=== PATIENT | male | born 1955 | race Caucasian/White ===

== ENCOUNTER → 2022-01-19 13:16 | Outpatient (BNVA) | payer MEDICARE, SELFPAY | PROVIDERS: PCP Internal Medicine; Visit Provider Psychiatry & Neurology Neurology | DX: G20 Parkinson's disease (principal); F32.A Depression, unspecified; Z79.899 Other long term (current) drug therapy | CPT/HCPCS: 99212 ==

== ENCOUNTER → 2022-05-18 12:51 | Outpatient (BNVA) | payer MEDICARE, SELFPAY | PROVIDERS: PCP Internal Medicine; Visit Provider Psychiatry & Neurology Neurology | DX: G20 Parkinson's disease (principal); F32.A Depression, unspecified | CPT/HCPCS: 99212 ==

== ENCOUNTER → 2022-09-14 12:55 | Outpatient (BNVA) | payer MEDICARE, SELFPAY | PROVIDERS: PCP Internal Medicine; Visit Provider Psychiatry & Neurology Neurology | DX: G20 Parkinson's disease (principal); F32.A Depression, unspecified | CPT/HCPCS: 99212 ==

== ENCOUNTER → 2023-04-07 13:49 | Outpatient (BNVA) | payer MEDICARE, SELFPAY | PROVIDERS: PCP Internal Medicine; Visit Provider Psychiatry & Neurology Neurology | DX: G20 Parkinson's disease (principal); F32.A Depression, unspecified | CPT/HCPCS: 99212 ==

== ENCOUNTER 2023-09-08 15:26 | Outpatient (AMB) | payer MEDICARE, SELFPAY ==
--- NOTE | 2023-09-08 15:27 | A.OFFVIS_ITS ---
Intake Vital Signs 09/08/23 15:30 Height 5 ft 6 in Weight 200 lb BMI 32.3 BP 122/68 Blood Pressure Location Rt brachial Position Sitting Respiration 16 Pulse 79 Pulse Source Pulse Oximeter Pulse Oximetry (%) 96 Oxygen Delivery Method Room Air Intake Visit Reasons: 3 mo f/u LVM to r/s MD off, Lvm Intake Note: Pt presents tot he office for a 3 month follow up for Parkinson's. Pt reports here with Bee. She reports they had a minor set back and had to adjust his night time meds, he's been a little better since . 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 He shuffles in the morning .He has 2 OFF periods usually end of the dose . He is anxious during these episodes. He is slower in the mornings He denies hallucinations he complains of some word-finding difficulties. Says he also notices that if he takes the morning dose with food it is not effective so he tripped takes it with a small snack. He also has dyskinesias more towards the later half of the day. He denies falls. He is active and exercises regularly. His mood is stable. Mom denies lightheadedness. Denies any swallowing or speech difficulty. He has mild constipation. [facility] Medical History (Updated 09/08/23 @ 15:45 by Alecia Keith MD) Constipation Depression Depression Obstructive sleep apnea Surgical History No pertinent past surgical history Family History Father No problems noted. Mother No problems noted. Social History Household Members: Spouse Alcohol intake: current Alcohol intake frequency: does not drink Patient Tobacco Use Status: Never used Tobacco Current occupational status: retired Physical Exam Vital Signs: Last Vital Signs Pulse 79 09/08/23 15:30 Resp 16 09/08/23 15:30 BP 122/68 09/08/23 15:30 Pulse Ox 96 09/08/23 15:30 Oxygen Delivery Method Room Air 09/08/23 15:30 BMI result Body Mass Index 32.3 Const General: cooperative, healthy appearing, comfortable and no acute distress Nutritional Appearance: average body habitus Orientation/consciousness: patient oriented x3 Neuro Other: Mild decreased facial expression and blink. Mild hypophonia. Moderate dyskinesias in legs No tongue tremors. No wrist tremors. Fine finger movements mildly decreased on the right upper extremity. Tone normal. Gait good posture mild decreased stride mild off balance and mild dyskinesias in bilateral upper extremities General: patient oriented x3 Cranial nerves: Yes CN's II-XII intact bilaterally Cognition (Neuro): normal cognition Assessment & Plan Assessment & Plan (1) Parkinson's disease: Code(s): G20 - Parkinson's disease (2) Depression: Code(s): F32.A - Depression, unspecified (3) Constipation: Code(s): K59.00 - Constipation, unspecified Plan Sinemet CR 25/100 tablet q.h.s.. Continue Sinemet 25/100 - 3 tabs 7am 2 tabs 10am 1pm 1 tab at 4pm, 7pm, 10pm start Miralax qd entacapone 200mg qid selegelline 5mg qd Lorazepam 0.5mg 1-2 tab qd Medications: Changed From carbidopa-levodopa 25-100 mg 2 tabs PO .6 times a day 360 tabs 6RF To carbidopa-levodopa 25-100 mg 2 tabs at 7am,10am,1pm 4pm 7pm , 1 tab 10pm 360 tabs 6RF Coding Level of Care Code Est Pt Level 4 (79242) Diagnoses Parkinson's disease G20 Depression F32.A Constipation K59.00
[2023-09-08 15:30] VITALS: BP 122/68; PULSE 79; RESP 16; O2SAT 96; BMI 32.3
== END 2023-09-08 15:52 | disposition home or self-care (01) ==
PROVIDERS: PCP Internal Medicine; Visit Provider Psychiatry & Neurology Neurology
DX: G20.B2 Parkinson's disease with dyskinesia, with fluctuations (principal); F32.A Depression, unspecified; K59.00 Constipation, unspecified
CPT/HCPCS: 99214

== ENCOUNTER → 2023-09-08 15:26 | Outpatient (BNVA) | payer MEDICARE, SELFPAY | PROVIDERS: PCP Internal Medicine; Visit Provider Psychiatry & Neurology Neurology | DX: G20.A1 Parkinson's disease without dyskinesia, without mention of fluctuations (principal); F32.A Depression, unspecified; K59.00 Constipation, unspecified | CPT/HCPCS: 99212 ==

== ENCOUNTER 2024-01-16 13:49 | Outpatient (AMB) | payer MEDICARE, SELFPAY ==
--- NOTE | 2024-01-16 13:50 | A.OFFVIS_ITS ---
Intake Vital Signs 01/16/24 13:51 Height 5 ft 6 in Weight 208 lb 4 oz BMI 33.6 BP 122/70 Blood Pressure Location Rt brachial Position Sitting Respiration 16 Pulse 81 Pulse Source Pulse Oximeter Pulse Oximetry (%) 95 Oxygen Delivery Method Room Air Intake Visit Reasons: 4 mo f/u - Dyskinesias Intake Note: Pt presents for a 4 month follow up for Parkinson's. Drugless Doctor Required: No Allergies No Known Allergies Allergy (Verified 01/16/24 13:51) HPI HPI Comments History of Present Illness Details 68-year-old male with Parkinson's candy canchola comes for a follow-up.He has dyskinesias towards the later part of the day. He shuffles in the morning .He has 2 OFF periods usually end of the dose . He is anxious during these episodes. He is slower in the mornings He denies hallucinations he complains of some word-finding difficulties. Says he also notices that if he takes the morning dose with food it is not effective so he tripped takes it with a small snack. He also has dyskinesias more towards the later half of the day. He denies falls. He is active and exercises regularly. His mood is stable. Mom denies lightheadedness. Denies any swallowing or speech difficulty. He has mild constipation. 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 Mother No problems noted. Social History Household Members: Spouse Alcohol intake: current Alcohol intake frequency: does not drink Patient Tobacco Use Status: Never used Tobacco Current occupational status: retired Physical Exam Vital Signs: Last Vital Signs Pulse 81 01/16/24 13:51 Resp 16 01/16/24 13:51 BP 122/70 01/16/24 13:51 Pulse Ox 95 01/16/24 13:51 Oxygen Delivery Method Room Air 01/16/24 13:51 BMI result Body Mass Index 33.6 Const General: cooperative, healthy appearing, comfortable and no acute distress Nutritional Appearance: average body habitus Orientation/consciousness: patient oriented x3 Neuro Other: Mild decreased facial expression and blink. Mild hypophonia. Moderate dyskinesias in legs No tongue tremors. No wrist tremors. Fine finger movements mildly decreased on the right upper extremity. Tone normal. Gait good posture mild decreased stride mild off balance and mild dyskinesias in bilateral upper extremities General: patient oriented x3 Cranial nerves: Yes CN's II-XII intact bilaterally Cognition (Neuro): normal cognition Assessment & Plan Assessment & Plan (1) Parkinson's disease with dyskinesia without fluctuating manifestations: Code(s): G20.B1 - Parkinson's disease with dyskinesia, without mention of fluctuations (2) Depression: Code(s): F32.A - Depression, unspecified (3) Constipation: Code(s): K59.00 - Constipation, unspecified Plan will trial him on Rytary 36/145 -2 caps qid for less fluctuations and dyskinesias- samples given Lot no [id number] 100caps exp- 08/23 Hold carbidopa /levodopa Ir and ER, comtan Miralax qd selegelline 5mg qd Lorazepam 0.5mg 1-2 tab qd Medications: New carbidopa-levodopa 36.25-145 mg ER (Rytary) divide evenly over waking hours 2 caps PO QID 240 caps 6RF Coding Level of Care Code Est Pt Level 4 (88786) Diagnoses Parkinson's disease with dyskinesia without fluctuating manifestations G20.B1 Depression F32.A Constipation K59.00
[2024-01-16 13:51] VITALS: BP 122/70; PULSE 81; RESP 16; O2SAT 95; BMI 33.6
== END 2024-01-16 14:16 | disposition home or self-care (01) ==
LOC: HO.HSMS 13:49
PROVIDERS: PCP Internal Medicine; Visit Provider Psychiatry & Neurology Neurology
DX: G20.B1 Parkinson's disease with dyskinesia, without mention of fluctuations (principal); F32.A Depression, unspecified; K59.00 Constipation, unspecified
CPT/HCPCS: 99214

== ENCOUNTER → 2024-01-16 13:49 | Outpatient (BNVA) | payer MEDICARE, SELFPAY | PROVIDERS: PCP Internal Medicine; Visit Provider Psychiatry & Neurology Neurology | DX: G20.B1 Parkinson's disease with dyskinesia, without mention of fluctuations (principal); F32.A Depression, unspecified; K59.00 Constipation, unspecified | CPT/HCPCS: 99212 ==

== ENCOUNTER 2024-05-30 13:46 | Outpatient (AMB) | payer MEDICARE, SELFPAY ==
--- NOTE | 2024-05-30 13:55 | A.OFFVIS_ITS ---
Vital Signs 05/30/24 14:02 Height 5 ft 6 in Weight 208 lb BMI 33.6 BP 138/80 Blood Pressure Location Rt brachial Position Sitting Respiration 16 Pulse 78 Pulse Source Pulse Oximeter Pulse Oximetry (%) 97 Oxygen Delivery Method Room Air Intake Visit Reasons: 4 month F/U - Confirmed Intake Note: Pt presents for a 4 month follow up for Parkinson's. 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 He shuffles in the morning .He has 2 OFF periods usually end of the dose . He is anxious during these episodes. He is slower in the mornings. He denies hallucinations he complains of some word-finding difficulties. Says he also notices that if he takes the morning dose with food it is not effective so he tripped takes it with a small snack. He also has dyskinesias more towards the later half of the day. He denies falls. He is active and exercises reg ularly. His mood is stable. Mom denies lightheadedness. Denies any swallowing or speech difficulty. He has mild constipation. [facility] Medical History Parkinson's disease with dyskinesia without fluctuating manifestations Constipation Depression Depression Obstructive sleep apnea Surgical History No pertinent past surgical history Family History Father No problems noted. Mother No problems noted. Social History Household Members: Spouse Alcohol intake: current Alcohol intake frequency: does not drink Patient Tobacco Use Status: Never used Tobacco Current occupational status: retired Physical Exam Vital Signs: Last Vital Signs Pulse 78 05/30/24 14:02 Resp 16 05/30/24 14:02 BP 138/80 05/30/24 14:02 Pulse Ox 97 05/30/24 14:02 Oxygen Delivery Method Room Air 05/30/24 14:02 BMI result Body Mass Index 33.6 Const General: cooperative, healthy appearing, comfortable and no acute distress Nutritional Appearance: average body habitus Orientation/consciousness: patient oriented x3 Neuro Other: Mild decreased facial expression and blink. Mild hypophonia. Moderate dyskinesias in legs No tongue tremors. No wrist tremors. Fine finger movements mildly decreased on the right upper extremity. Tone normal. Gait good posture mild decreased stride mild off balance and mild dyskinesias in bilateral upper extremities General: patient oriented x3 Cranial nerves: Yes CN's II-XII intact bilaterally Cognition (Neuro): normal cognition Assessment & Plan Assessment & Plan (1) Parkinson's disease with dyskinesia without fluctuating manifestations: Code(s): G20.B1 - Parkinson's disease with dyskinesia, without mention of fluctuations Category: Medical (2) Depression: Code(s): F32.A - Depression, unspecified Category: Medical (3) Constipation: Code(s): K59.00 - Constipation, unspecified Category: Medical Plan Change sinemet 25/100 6am,9am,12pm,3pm,6pm,9pm,- 3-2-3-1-1-1 increase sinemet Cr 25/100 2 tabs qhs Miralax qd selegelline 5mg qd Lorazepam 0.5mg 1-2 tab qd Medications: Changed From carbidopa-levodopa 25-100 mg 2 tabs at 7am,10am,1pm 4pm 7pm , 1 tab 10pm 360 tabs 6RF To carbidopa-levodopa 25-100 mg 3 tabs at 6am,12noon 2tabs 9am, 1 tab at 3pm,6,pm,9pm 360 tabs 6RF From carbidopa-levodopa 25-100 mg ER 1 tab PO BEDTIME 30 tabs 6RF To carbidopa-levodopa 25-100 mg ER 2 tabs PO BEDTIME 60 tabs 6RF Discontinued carbidopa-levodopa 36.25-145 mg ER (Rytary) divide evenly over waking hours Discontinued Reason: Patient no longer taking 2 caps PO QID 240 caps 6RF Coding Level of Care Code New Pt Level 4 (67264) Complex EM visit Add On G2211 Diagnoses Parkinson's disease with dyskinesia without fluctuating manifestations G20.B1 Depression F32.A Constipation K59.00
[2024-05-30 14:02] VITALS: BP 138/80; PULSE 78; RESP 16; O2SAT 97; BMI 33.6
== END 2024-05-30 14:29 | disposition home or self-care (01) ==
PROVIDERS: PCP Internal Medicine; Visit Provider Psychiatry & Neurology Neurology
DX: G20.B1 Parkinson's disease with dyskinesia, without mention of fluctuations (principal); F32.A Depression, unspecified; K59.00 Constipation, unspecified
CPT/HCPCS: 99214; G2211

== ENCOUNTER → 2024-05-30 13:46 | Outpatient (BNVA) | payer MEDICARE, SELFPAY | PROVIDERS: PCP Internal Medicine; Visit Provider Psychiatry & Neurology Neurology | DX: G20.B1 Parkinson's disease with dyskinesia, without mention of fluctuations (principal); F32.A Depression, unspecified; K59.00 Constipation, unspecified | CPT/HCPCS: 99212 ==

== ENCOUNTER 2024-12-31 13:47 | Outpatient (AMB) | payer MEDICARE, SELFPAY ==
--- NOTE | 2024-12-31 14:19 | MHC.OFFVIS ---
Vital Signs 12/31/24 14:20 Height 5 ft 6 in Weight 193 lb BMI 31.1 BP 118/70 Blood Pressure Location Rt brachial Position Sitting Pulse 65 Pulse Source Pulse Oximeter Pulse Oximetry (%) 98 Oxygen Delivery Method Room Air Intake Visit Reasons: Follow up Intake Note: Patient following up on parkinson's medication increased(sinemet) Allergies No Known Allergies Allergy (Verified 12/31/24 14:23) HPI Comments Details: 68-year-old male with Parkinson's disease comes for a follow-up.No improvement in OFF periods and dyskinesias with chnage in medictaions He still has more than 4 hr sof OFF periods during the day. After his 7 am dos eit take mendy 4 hrs to start moving. He has dyskinesias towards the later part of the day. He shuffles in the morning .He has 2 OFF periods usually end of the dose . He is anxious during these episodes. He is slower in the mornings. He denies hallucinations he complains of some word-finding difficulties. Says he also notices that if he takes the morning dose with food it is not effective so he tripped takes it with a small snack. He also has dyskinesias more towards the later half of the day. He denies falls. He is active and exercises regularly. His mood is stable. Mom denies lightheadedness. Denies any swallowing or speech difficulty. He has mild constipation. 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 Mother No problems noted. Social History Household Members: Spouse Alcohol intake: current Alcohol intake frequency: does not drink Patient Tobacco Use Status: Never used Tobacco Current occupational status: retired Physical Exam Vital Signs: Last Vital Signs Pulse 65 12/31/24 14:20 BP 118/70 12/31/24 14:20 Pulse Ox 98 12/31/24 14:20 Oxygen Delivery Method Room Air 12/31/24 14:20 BMI result Body Mass Index 31.1 Const General: cooperative, healthy appearing, comfortable and no acute distress Nutritional Appearance: average body habitus Orientation/consciousness: patient oriented x3 Neuro Other: Mild decreased facial expression and blink. Mild hypophonia. Moderate dyskinesias No tongue tremors. No wrist tremors. Fine finger movements mildly decreased on the right upper extremity. Tone normal. Gait good posture mild decreased stride mild off balance and mild dyskinesias in bilateral upper extremities General: patient oriented x3 Cranial nerves: Yes CN's II-XII intact bilaterally Cognition (Neuro): normal cognition Assessment & Plan Assessment & Plan (1) Parkinson's disease with dyskinesia: Comment: .B2 Code(s): G20.B1 - Parkinson's disease with dyskinesia, without mention of fluctuations Category: Medical Qualifiers: Fluctuating manifestations: with fluctuating manifestations Qualified Code(s): G20.B2 - Parkinson's disease with dyskinesia, with fluctuations (2) Depression: Code(s): F32.A - Depression, unspecified Category: Medical (3) Constipation: Code(s): K59.00 - Constipation, unspecified Category: Medical Plan Change sinemet 25/100 2tabs at 4am,7am,10am,1pm,4pm,7pm increase sinemet Cr 25/100 2 tabs 10 PM Indo in VYALEV 9 Dopamine SQ pump was given ) He will be a good candidate due to fluctuations and more than 4 hrs of OFF periods per day. Miralax qd selegelline 5mg qd Lorazepam 0.5mg 1-2 tab qd Medications: Changed From carbidopa-levodopa 25-100 mg 3 tabs at 6am,12noon 2tabs 9am, 1 tab at 3pm,6,pm,9pm 360 tabs 6RF To carbidopa-levodopa 25-100 mg 2 tabs at 4am,7am,10am,1pm,4pm,7pm 360 tabs 6RF Coding Level of Care Code Est Pt Level 4 (75593) Complex EM visit Add On G2211 Diagnoses Parkinson's disease with dyskinesia and fluctuating manifestations G20.B2 Fluctuating manifestations: with fluctuating manifestations Depression F32.A Constipation K59.00
[2024-12-31 14:20] VITALS: BP 118/70; PULSE 65; O2SAT 98; BMI 31.1
--- OUTSIDE RECORDS SUMMARY | 2024-12-31 16:19 | XMS_ITS | Continuity of Care Document ---
Author Organization [facility] Carlos Enrique Address [address] [place] [address]- Care Team Providers Care Band Attacher Name Role Phone Jacquie FOSTER, Russell Chance Primary Care Physician [place] [facility] 12/13/24 - 12/20/24 [facility] Adult [address] [place] [address]- Attending Physician: Anushka Santos Encounter Type: Office Visit Allergies, Adverse Reactions, Alerts Substance Criticality Severity Reaction Reaction Severity Status sulfADIAZINE Active Immunizations Given and Recorded Vaccine Date Status Refusal Reason influenza virus vaccine, inactivated 08/14/24 Martín rded influenza virus vaccine, inactivated 08/01/23 Martín rded influenza virus vaccine, inactivated 08/17/22 Give n influenza virus vaccine, inactivated 08/13/21 Give n influenza virus vaccine, inactivated 08/13/20 Give n influenza virus vaccine, inactivated 08/20/19 Give n influenza virus vaccine, inactivated 08/24/18 Give n influenza virus vaccine, inactivated 1 08/29/17 Gi meena influenza virus vaccine, inactivated 09/13/16 Give n influenza virus vaccine, inactivated 09/22/15 Give n influenza virus vaccine, inactivated 09/17/14 Give n influenza virus vaccine, inactivated 09/21/13 Give n influenza virus vaccine, inactivated 06/15/12 Give n pneumococcal 20-valent conjugate vaccine 2 04/19/23 Given pneumococcal 23-valent vaccine 04/12/22 Given pneumococcal 23-valent vaccine 07/16/12 Given SARS-CoV-2 mRNA ([id number]) vax 02/16/22 Recorded SARS-CoV-2 (COVID-19) mRNA BNT-162b2 vac 08/03/21 Recorded SARS-CoV-2 (COVID-19) mRNA BNT-162b2 vac 01/28/21 Given SARS-CoV-2 (COVID-19) mRNA BNT-162b2 vac 01/07/21 Given pneumococcal 13-valent vaccine 04/01/20 Given tetanus/diphtheria/pertussis, acel(Tdap) 03/04/15 Given tetanus-diphtheria toxoids (Td) 06/21/07 Given 1Result Comment: [08/29/2017] NDS:[id number] 2Result Comment: [id number] Medications carbidopa-levodopa 25 mg-100 mg oral tablet See Instructions, 2 tablet By Mouth 6 times a day, 0 Refills, Maintenance, 04/19/23 2:05:00 PM EDT, Partial fill upon patient request if the prescription is for a schedule II opioid drug. Start Date: 04/19/23 Status: Ordered Repeat number: 1 carbidopa-levodopa 50 mg-200 mg oral tablet, extended release See Instructions, 1 tab at bedtime, 0 Refills, Maintenance, 04/19/23 2:06:00 PM EDT, Partial fill upon patient request if the prescription is for a schedule II opioid drug. Start Date: 04/19/23 Status: Ordered Repeat number: 1 entacapone 200 mg oral tablet See Instructions, 1 tab four times a day, 0 Refills, Maintenance, 04/19/23 2:05:00 PM EDT, Partial fill upon patient request if the prescription is for a schedule II opioid drug. Start Date: 04/19/23 Status: Ordered Repeat number: 1 selegiline 5 mg oral tablet See Instructions, 1 tablet By Mouth Daily at breakfast, 0 Refills, Maintenance, 04/19/23 2:04:00 PM EDT, Partial fill upon patient request if the prescription is for a schedule II opioid drug. Start Date: 04/19/23 Status: Ordered Repeat number: 1 Problem List Condition Confirmation Course Effective Dates Status Health Status Informant Dyspnea on effort Confirmed 06/29/12 Active Family history of colon cancer Confirmed Active Hand pain, left Confirmed Active History of colonoscopy 1 Confirmed Active History of colon polyps 2, 3 Confirmed Active Hypercholesterolemia Confirmed 06/29/12 Active Obese class I Confirmed Active Obesity (BMI 30-39.9) Confirmed Active NORRIS (obstructive sleep apnea) Confirmed Active Parkinson's disease Confirmed Active Plantar fasciitis, left Confirmed Active Venous stasis Confirmed Active 42706; repeat 2023 2Colonoscopy 2013 positive polyp, repeat 2017. 3colo 2008 by artemio, repeat 2013 Vital Signs Most recent to oldest [Reference Range]: 1 Height 167 cm (12/13/24 11:10 AM) Weight 83.91 kg (12/13/24 11:10 AM) Oxygen Saturation [94-100 %] 100 % (12/13/24 11:10 AM) Pulse Rate [55-90 bpm] 84 bpm (12/13/24 11:10 AM) Body Mass Index [18.5-24.99 kg/m2] 30.09 kg/m2 *>HHI* (12/13/24 11:10 AM) Blood Pressure [90-138/55-84 mm Hg] 145/ 79mm Hg *H* (12/13/24 11:10 AM) Temperature [96.8-100.4 DegF] 98.3 DegF (12/13/24 11:10 AM) Mode of Delivery (Oxygen) Room air (12/13/24 11:10 AM) Blood pressure sites Arm, right (12/13/24 11:10 AM) Temperature Route Oral (12/13/24 11:10 AM) Weight Obtained Via Patient/family state d (12/13/24 11:10 AM) Social History Social History Type Response Smoking Status Never smoker entered on: 03/08/16 Sex Sex Representation Male (finding) Patient Care team information Care Team Personnel Name: Russell Dhillon MD Position: [facility] Physician - Primary Care Member Role: PCP Address: [address] [place] [id number] Telecom: Care Team Related Persons Name: STEFANIA FARAH Insurance Providers Guarantor name: ALEJANDRO FARAH Health Plan Information #: 1 Payer: [facility] MEDIC[facility] AD[facility] HMO Member Number: [id number] Policy Number: NA Group Number: [id number] Health Plan Information #: 2 Payer: [employer] ADV HMO Member Number: [id number] Policy Number: NA Group Number: [id number]
== END 2024-12-31 14:52 | disposition home or self-care (01) ==
PROVIDERS: PCP Internal Medicine; Visit Provider Psychiatry & Neurology Neurology
DX: G20.B2 Parkinson's disease with dyskinesia, with fluctuations (principal); F32.A Depression, unspecified; K59.00 Constipation, unspecified
CPT/HCPCS: 99214; G2211

== ENCOUNTER → 2024-12-31 13:47 | Outpatient (BNVA) | payer MEDICARE, SELFPAY | PROVIDERS: PCP Internal Medicine; Visit Provider Psychiatry & Neurology Neurology | DX: G20.B1 Parkinson's disease with dyskinesia, without mention of fluctuations (principal); F32.A Depression, unspecified; K59.00 Constipation, unspecified | CPT/HCPCS: 99212 ==

== ENCOUNTER 2025-01-08 13:12 | Outpatient (AMB) | payer MEDICARE, SELFPAY ==
--- NOTE | 2025-01-08 13:16 | MHC.OFFVIS ---
Vital Signs 01/08/25 13:24 Height 5 ft 6 in Weight 192 lb BMI 31.0 BP 121/73 Blood Pressure Location Lt brachial Position Sitting Pulse 78 Intake Visit Reasons: Inguinal hernia Intake Note: Patient is seen in office for evaluation and treatment of an left inguinal hernia. Pt c/o: feels a lump for about 2 months, reducible, worse when walking, discomfort, denies n/v/d/c, PCP:12/28/24 Imaging:zero Machine Fixer Required: No Accompanied by: Family/Other Medication List - Last Reconciled 01/08/25 by Casimiro Morrow MD carbidopa-levodopa 25-100 mg 2 tabs at 4am,7am,10am,1pm,4pm,7pm carbidopa-levodopa 25-100 mg ER 2 tabs PO BEDTIME entacapone 200 mg PO QID selegiline HCl 5 mg PO DAILY HPI Comments Details: 69-year-old male patient with a past medical history of Parkinson's disease presenting with a 2 month history of a lump in the left groin. The lump has gradually increased in size in his causing occasional discomfort. He does report urinary frequency but denies hesitancy. He denies a previous history of hernias or hernia surgery. He also denies nausea, vomiting, diarrhea or constipation. [facility] Medical History Parkinson's disease with dyskinesia Parkinson's disease with dyskinesia without fluctuating manifestations Constipation Depression Depression Obstructive sleep apnea Surgical History Hx of appendectomy (1962) History of colonoscopy Family History Father No problems noted. Mother No problems noted. Brother Colon cancer Social History Household Members: Spouse Alcohol intake: current Alcohol intake frequency: does not drink Patient Tobacco Use Status: Never used Tobacco Current occupational status: retired Review of Systems Const All systems reviewed & are unremarkable except as noted in HPI and below Physical Exam Vital Signs: Last Vital Signs Pulse 78 01/08/25 13:24 BP 121/73 03/11/25 13:24 BMI result Body Mass Index 31.0 Const General: comfortable Nutritional Appearance: well nourished Orientation/consciousness: patient oriented x3 Resp Effort & Inspection: normal respiratory effort, no audible wheezes, no cough and no respiratory distress GI Inspection: Yes normal to inspection Palpation (GI): Soft to palpation, nontender, no guarding, not rigid and Hernia present direct inguinal (Reducible) on the left Neuro General: patient oriented x3 Extrem General: Yes no clubbing, cyanosis or edema Assessment & Plan Assessment & Plan (1) Reducible left inguinal hernia: Code(s): K40.90 - Unilateral inguinal hernia, without obstruction or gangrene, not specified as recurrent Category: Medical Plan 69-year-old male patient presenting with a new onset of a left inguinal hernia. On examination the hernia is easily reducible with only minimal discomfort. He does have a past history of Parkinson's disease and urinary frequency. I recommended repair of this left inguinal hernia with mesh and after discussion of the procedure, risks, and alternatives, he consents to the surgery. Coding Level of Care Code New Pt Level 4 (04948) Diagnoses Reducible left inguinal hernia K40.90
[2025-01-08 13:24] VITALS: BP 121/73; PULSE 78; BMI 31.0
== END 2025-01-08 13:35 | disposition home or self-care (01) ==
LOC: HO.HGS 13:13
PROVIDERS: PCP Internal Medicine; Visit Provider Surgery
DX: K40.90 Unilateral inguinal hernia, without obstruction or gangrene, not specified as recurrent (principal)
CPT/HCPCS: 99204

== ENCOUNTER → 2025-01-08 13:12 | Outpatient (BNVA) | payer MEDICARE, SELFPAY | PROVIDERS: PCP Internal Medicine; Visit Provider Surgery | DX: K40.90 Unilateral inguinal hernia, without obstruction or gangrene, not specified as recurrent (principal) | CPT/HCPCS: 99202 ==

== ENCOUNTER 2025-01-30 07:51 | Day surgery (SDC) | payer MEDICARE, SELFPAY ==
[2025-01-23 10:14] VITALS: BMI 31.7
--- NOTE | 2025-01-28 14:22 | HO.ANESPROP2 ---
HPI - Anesthesia Eval Consult details Narrative: 69yo M for Left Hernia Inguinal Reducible with mesh Parkinsons - follows [facility] neuro PMFSH Active Problems Active Problems: All Active Problems Reducible left inguinal hernia (Acute) Parkinson's disease (Acute) Parkinson's disease with dyskinesia (Acute) Parkinson's disease with dyskinesia without fluctuating manifestations (Acute) Constipation (Acute) Depression (Acute) Past Medical History Medical History Walker as ambulation aid Drooling Hx of heartburn Seasonal allergies Back pain Venous stasis Panic disorder OCD (obsessive compulsive disorder) Hypercholesterolemia Hx of colonic polyps Left hand pain JOSE (generalized anxiety disorder) Dysthymic disorder STRATTON (dyspnea on exertion) Anxiety 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 Mother No problems noted. Brother Colon cancer Surgical History Surgical History Hx of tonsillectomy Hx of appendectomy (1963) History of colonoscopy Social History Social History Household Members: Spouse Housing: House Are you a primary hospice care consultant to a significant other at home: No Do you presently have visiting nurse or other home services: No Alcohol intake: current Alcohol intake frequency: does not drink Patient Tobacco Use Status: Never used Tobacco e-Cigarette/Vaping Use: Never Used Current occupational status: retired [employer] Allergies Allergy/AdvReac Type Severity Reaction Status Date / Time sulfadiazine Allergy Nausea and Verified 01/30/25 08:13 Vomiting Home Medications ?Medication ?Instructions ?Recorded ?Confirmed ?Last Taken ?Type carbidopa ER 25 mg-levodopa 100 mg 2 tab PO .BEDTIME@2300 01/23/25 01/23/25 Unknown History tablet,extended release fexofenadine 180 mg tablet 180 mg PO DAILY PRN Allergy 01/23/25 01/23/25 Unknown History Symptoms selegiline HCl 5 mg tablet 5 mg PO .DAILY@0800 01/23/25 01/23/25 Unknown History Exam Height,Weight and Vital Signs: Height 5 ft 5.75 in Weight 88.451 kg Pertinent Lab Results Pertinent Lab Results: CBC and BMP 04/2024 from [facility] [place] Assessment and Plan Assessment Anesthesia Assessment: Chart Reviewed
[2025-01-30] VITALS (8 sets, daily range): BP systolic 102–126; BP diastolic 61–80; PULSE 62–78; RESP 16–18; TEMP 36.4–36.9; O2SAT 96–98; BMI 31.6
--- NOTE | 2025-01-30 08:04 | HO.ANESPROP2 ---
[facility] Active Problems Active Problems: All Active Problems Reducible left inguinal hernia (Acute) Parkinson's disease (Acute) Parkinson's disease with dyskinesia (Acute) Parkinson's disease with dyskinesia without fluctuating manifestations (Acute) Constipation (Acute) Depression (Acute) Past Medical History Medical History Walker as ambulation aid Drooling Hx of heartburn Seasonal allergies Back pain Venous stasis Panic disorder OCD (obsessive compulsive disorder) Hypercholesterolemia Hx of colonic polyps Left hand pain JOSE (generalized anxiety disorder) Dysthymic disorder STRATTON (dyspnea on exertion) Anxiety 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 Mother No problems noted. Brother Colon cancer Surgical History Surgical History Hx of appendectomy (1963) History of colonoscopy Social History Social History Household Members: Spouse Housing: House Are you a primary dog day care attendant to a significant other at home: No Do you presently have visiting nurse or other home services: No Alcohol intake: current Alcohol intake frequency: does not drink Patient Tobacco Use Status: Never used Tobacco e-Cigarette/Vaping Use: Never Used Use of substances other than those prescribed or required for medical reasons: No Have you been hit, kicked, punched, or otherwise hurt by someone within the past year? If so, by whom?: No Are you DNR?: No Advance Directives: No Advance Directives Information Provided: Yes Advance Directives on File: No Recently lost weight without trying: No Nutrition Risks: No Nutritional Risk Poor oral hygiene: No Current occupational status: retired Meds Allergies Allergy/AdvReac Type Severity Reaction Status Date / Time sulfadiazine Allergy Unknown Verified 01/23/25 09:24 Active Medications: Current Medications Lactated Ringer's (Lr) 1,000 mls @ 100 mls/hr IVCONT .Q10H SOPHIA Cefazolin Sodium/Dextrose (Ancef) 2 gm in 50 mls @ 100 mls/hr IV PREOP ONE Stop: 01/30/25 08:30 Home Medications ?Medication ?Instructions ?Recorded ?Confirmed ?Last Taken ?Type carbidopa ER 25 mg-levodopa 100 mg 2 tab PO .BEDTIME@2300 01/23/25 01/23/25 Unknown History tablet,extended release fexofenadine 180 mg tablet 180 mg PO DAILY PRN Allergy 01/23/25 01/23/25 Unknown History Symptoms selegiline HCl 5 mg tablet 5 mg PO .DAILY@0800 01/23/25 01/23/25 Unknown History Exam Height,Weight and Vital Signs: Height 5 ft 5.75 in Weight 88.451 kg
[2025-01-30] MEDS: Lactated Ringers 1,000 ML 100 ML IVCONT (08:39)
--- NOTE | 2025-01-30 08:50 | MHC.SHP ---
Pre-Procedural Eval Section A - 24 Hr Update-Section A only Date of Service: 01/30/25 The patient is an INPATIENT: No Changes since office visit: Yes Patient answered all questions; No Cold of Flu in the past 2 weeks, No New Medical Problems and No Changes in Medication The patient has been examined within 24 hours of the surgical procedure. The History & Physical has been completed within 30 days and I have reviewed it.: No Section B - Complete if H&P > 30 days Chief Complaint: Unilateral inguinal hernia, without obstruction or Details of Present Illness: No change in the patient's symptoms. He continues to have discomfort in the left groin. Relevant Family History (Specify if Yes): No Relevant Social History: None Present Medications: see Short Stay Collaborative assessment Medical History: Significant History (Parkinson's, depression) History of Previous Operations: No relevant previous surgery Allergies: Allergies Allergy/AdvReac Type Severity Reaction Status Date / Time sulfadiazine Allergy Nausea and Verified 01/30/25 08:13 Vomiting Review of Systems Sugical H&P ROS: Negative: Constitution, Cardiovascular, Respiratory, Allergic/Immunologic, Gastrointestinal, Genitourinary, Musculoskeletal and Integumentary and Yes, Specify: Neurological (Tremor) Exam Surgical H&P Exam: Normal: HEENT, Normal: Heart, Normal: Lungs, Normal: Extremities and Normal: Skin and Significant Findings: Abdomen (Left inguinal hernia, reducible) Plan Diagnosis/Plan: Unchanged I have reviewed the history and physical and performed a pertinent physical examination on my patient. No changes have occurred unless specified. Time Spent With Patient Time: Total time managing care of this patient today ____ minutes.
--- NOTE | 2025-01-30 08:56 | HO.ANESPROP2 ---
[facility] Active Problems Active Problems: All Active Problems Reducible left inguinal hernia (Acute) Parkinson's disease (Acute) Parkinson's disease with dyskinesia (Acute) Parkinson's disease with dyskinesia without fluctuating manifestations (Acute) Constipation (Acute) Depression (Acute) Past Medical History Medical History Walker as ambulation aid Drooling Hx of heartburn Seasonal allergies Back pain Venous stasis Panic disorder OCD (obsessive compulsive disorder) Hypercholesterolemia Hx of colonic polyps Left hand pain JOSE (generalized anxiety disorder) Dysthymic disorder STRATTON (dyspnea on exertion) Anxiety 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 Mother No problems noted. Brother Colon cancer Family history of problems with anesthesia: No Surgical History Surgical History Hx of tonsillectomy Hx of appendectomy (1962) History of colonoscopy History of Problems with Anesthesia: No Social History Social History Household Members: Spouse Housing: House Are you a primary healthcare specialist to a significant other at home: No Do you presently have visiting nurse or other home services: No Alcohol intake: current Alcohol intake frequency: does not drink Patient Tobacco Use Status: Never used Tobacco e-Cigarette/Vaping Use: Never Used Use of substances other than those prescribed or required for medical reasons: No Have you been hit, kicked, punched, or otherwise hurt by someone within the past year? If so, by whom?: No Are you DNR?: No Advance Directives: No Advance Directives Information Provided: Yes Advance Directives on File: No Recently lost weight without trying: No Nutrition Risks: No Nutritional Risk Poor oral hygiene: No Current occupational status: retired Meds Allergies Allergy/AdvReac Type Severity Reaction Status Date / Time sulfadiazine Allergy Nausea and Verified 01/30/25 08:13 Vomiting Active Medications: Current Medications Lactated Ringer's (Lr) 1,000 mls @ 100 mls/hr IVCONT .Q10H SOPHIA Last Admin: 01/30/25 08:39 Dose: 100 mls/hr Home Medications ?Medication ?Instructions ?Recorded ?Confirmed ?Last Taken ?Type carbidopa ER 25 mg-levodopa 100 mg 2 tab PO .BEDTIME@2300 01/23/25 01/23/25 Unknown History tablet,extended release fexofenadine 180 mg tablet 180 mg PO DAILY PRN Allergy 01/23/25 01/23/25 Unknown History Symptoms selegiline HCl 5 mg tablet 5 mg PO .DAILY@0800 01/23/25 01/23/25 Unknown History Exam Height,Weight and Vital Signs: Height 5 ft 6 in Weight 88.7 kg Last Vital Signs Temp 98.5 F 01/30/25 08:31 Pulse 77 01/30/25 08:31 Resp 16 01/30/25 08:31 BP 126/80 01/30/25 08:31 Pulse Ox 96 01/30/25 08:31 O2 Del Method Room Air 01/30/25 08:31 Airway Mallampati Class: II TM Dist: >3cm Neck ROM: Full Heart: RRR Lungs: CTA Assessment and Plan Assessment Anesthesia Assessment: Anesthesia Plan Discussed and Chart Reviewed Final Anesthetic Review Family History of Problems with Anesthesia: No History of Problems with Anesthesia: No NPO: Yes ASA Class: III Final Preanesthetic Review: Meds/Allgs Chart Reviewed, Consent Obtained/Reviewed and Anes Risks/Benef Reviewed Patient Risk: Low Anesthetic Plan Anesthetic Plan: GA Disposition: Standard PACU
--- NOTE | 2025-01-30 09:48 | P.CONAN_ITS ---
[facility] Active Problems Active Problems: All Active Problems Reducible left inguinal hernia (Acute) Parkinson's disease (Acute) Parkinson's disease with dyskinesia (Acute) Parkinson's disease with dyskinesia without fluctuating manifestations (Acute) Constipation (Acute) Depression (Acute) Past Medical History Medical History Walker as ambulation aid Drooling Hx of heartburn Seasonal allergies Back pain Venous stasis Panic disorder OCD (obsessive compulsive disorder) Hypercholesterolemia Hx of colonic polyps Left hand pain JOSE (generalized anxiety disorder) Dysthymic disorder STRATTON (dyspnea on exertion) Anxiety 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 Mother No problems noted. Brother Colon cancer Family history of problems with anesthesia: No Surgical History Surgical History Hx of tonsillectomy Hx of appendectomy (1962) History of colonoscopy History of Problems with Anesthesia: No Social History Social History Household Members: Spouse Housing: House Are you a primary regular senior care provider to a significant other at home: No Do you presently have visiting nurse or other home services: No Alcohol intake: current Alcohol intake frequency: does not drink Patient Tobacco Use Status: Never used Tobacco e-Cigarette/Vaping Use: Never Used Use of substances other than those prescribed or required for medical reasons: No Have you been hit, kicked, punched, or otherwise hurt by someone within the past year? If so, by whom?: No Are you DNR?: No Advance Directives: No Advance Directives Information Provided: Yes Advance Directives on File: No Recently lost weight without trying: No Nutrition Risks: No Nutritional Risk Poor oral hygiene: No Current occupational status: retired Meds Allergies Allergy/AdvReac Type Severity Reaction Status Date / Time sulfadiazine Allergy Nausea and Verified 01/30/25 08:13 Vomiting Active Medications: Current Medications Fentanyl (Fentanyl Citrate/Pf 100 Mcg/2 Ml Vial) 25 mcg IVPUSH Q5M PRN PRN Reason: Pain, Moderate to Severe (Pain Scale 4-10) Stop: 01/30/25 15:44 Lactated Ringer's (Lr) 1,000 mls @ 100 mls/hr IVCONT .Q10H SOPHIA Last Admin: 01/30/25 08:39 Dose: 100 mls/hr Lactated Ringer's (Lr) 1,000 mls @ 100 mls/hr IVCONT .Q10H SOPHIA Naloxone HCl (Naloxone Hcl 0.4 Mg/Ml Vial) 0.04 mg IVPUSH Q5M PRN PRN Reason: Excessive sedation or RR < 8 Ondansetron HCl (Ondansetron Odt 4 Mg Tab.Rapdis) 4 mg TRANSLINGU ONCE PRN PRN Reason: Nausea and Vomiting Stop: 01/30/25 15:45 Home Medications ?Medication ?Instructions ?Recorded ?Confirmed ?Last Taken ?Type carbidopa ER 25 mg-levodopa 100 mg 2 tab PO .BEDTIME@2300 01/23/25 01/23/25 Unknown History tablet,extended release fexofenadine 180 mg tablet 180 mg PO DAILY PRN Allergy 01/23/25 01/23/25 Unknown History Symptoms selegiline HCl 5 mg tablet 5 mg PO .DAILY@0800 01/23/25 01/23/25 Unknown History Exam Height,Weight and Vital Signs: Height 5 ft 6 in Weight 88.7 kg Last Vital Signs Temp 98.5 F 01/30/25 08:31 Pulse 77 01/30/25 08:31 Resp 16 01/30/25 08:31 BP 126/80 01/30/25 08:31 Pulse Ox 96 01/30/25 08:31 O2 Del Method Room Air 01/30/25 08:31 Airway Mallampati Class: II TM Dist: >3cm Neck ROM: Full Heart: RRR Lungs: CTA Assessment and Plan Assessment Anesthesia Assessment: Anesthesia Plan Discussed and Chart Reviewed Final Anesthetic Review Family History of Problems with Anesthesia: No History of Problems with Anesthesia: No NPO: Yes ASA Class: III Final Preanesthetic Review: Meds/Allgs Chart Reviewed and Consent Obtained/Reviewed Patient Risk: Low Procedure Risk: Low Anesthetic Plan Anesthetic Plan: GA Disposition: Standard PACU
--- NOTE | 2025-01-30 10:08 | P.OP_ITS ---
Operative Note Operative Note Date of Service: 01/30/25 Narrative: Preoperative diagnosis: Reducible left inguinal hernia Postoperative diagnosis: Same Procedure: Repair of left inguinal hernia with mesh Surgeon: Casimiro Morrow MD Production Worker: Glory Vizcarra PA-C; Dano Montoya, MS-3 Anesthesia: General LMA Indications for procedure: 69-year-old male patient with a history of Parkinson's disease with a painful lump in the left groin which on examination is a reducible left inguinal hernia. Operative findings: Reducible left indirect inguinal hernia Specimen: Hernia sac left Estimated blood loss: 2 mL Complications: None Procedure details: Patient was brought to the OR and placed in a supine position. After administering general anesthesia the patient's abdomen was prepped with ChloraPrep and draped in a sterile fashion. A surgical time-out was called the consent confirmed. Patient received preoperative antibiotics and Venodyne boots were in place. Local anesthesia consisting of 0.5% Sensorcaine was infiltrated over the left inguinal ligament. Incision was then made with a scalpel and carried out through subcutaneous tissue, past Rickie's fashion up to the external oblique aponeurosis. Additional local was placed below the external oblique aponeurosis. This was then incised with a scalpel and widened with the Metzenbaum scissors. Spermatic cord was then dissected free from the surrounding inguinal canal and retracted using a Philadelphia drain. The floor of the inguinal canal showed some laxity suggestive of a small inguinal hernia. Fibers of the cremaster muscle were then and a large indirect sac identified. This was dissected down to the internal ring. The sac was opened and the contents reduced. The sac contained omental fat. The sac was then ligated at its base with a 0 Polysorb suture. The sac was then excised and sent as a specimen. Attention was then directed to the floor of the inguinal canal. Fibers of the internal oblique and transversus abdominis muscle were then using electrocautery and the preperitoneal space entered. This was then widened with an open Ray-Mihir sponge. A large PHS mesh was then obtained. The circular underlay was deployed within the preperitoneal space. The overlay was then secured to the pubic tubercle, conjoined tendon, and shelving edge of the inguinal ligament using a 0 Polysorb suture. A slit was made in the mesh in the mesh wrapped around the spermatic cord at the internal ring. This was secured to the shelving edge using the 0 Polysorb suture. This was tight enough to allow the passage of an index finger only. The remainder of the mesh was pl aced laterally below the external oblique aponeurosis. Wounds were then irrigated with saline solution and suctioned dry. External oblique aponeurosis was then closed using a running 2-0 Polysorb suture. Rickie's fascia and dermis were reapproximated using interrupted 3-0 Polysorb sutures. Skin was then closed using a running subcuticular 4-0 Polysorb suture. Steri-Strips, 4 x 4 gauze and Tegaderm were then applied. The patient tolerated the procedure well. Sponge, instrument, and needle counts were reported as correct. The patient was transferred to PACU in stable condition.
--- NOTE | 2025-01-30 11:46 | HO.POSTANES ---
Post Anesthesia Evaluation Post Anesthesia Evaluation Date of Service: 01/30/25 Vital Signs: Vital Signs Temp Pulse Resp BP Pulse Ox O2 Del Method 01/30/25 11:25 98 F 78 18 123/61 96 Room Air 01/30/25 11:09 67 18 115/70 97 Room Air 01/30/25 10:55 62 16 113/66 98 Room Air 01/30/25 10:40 63 16 105/65 98 Room Air 01/30/25 10:35 63 16 105/63 98 Room Air 01/30/25 10:30 62 16 102/67 98 Room Air 01/30/25 10:28 97.6 F 62 16 110/68 97 Room Air 01/30/25 08:31 98.5 F 77 16 126/80 96 Room Air Anesthesia: General LMA Mental Status: Awake Pain Control: Satisfactory Nausea/Vomiting: None Hydration: Adequate Anesthesia-Related Issues: No Anes. Related Issues
== END 2025-01-30 12:08 | disposition home or self-care (01) ==
PROVIDERS: PCP Internal Medicine; Visit Provider Surgery
PROC: (CPT 49505; principal; 2025-01-30 09:30)
DX: K40.90 Unilateral inguinal hernia, without obstruction or gangrene, not specified as recurrent (principal); G20.B1 Parkinson's disease with dyskinesia, without mention of fluctuations; G47.33 Obstructive sleep apnea (adult) (pediatric); R35.0 Frequency of micturition; K59.00 Constipation, unspecified; F32.A Depression, unspecified; Z79.899 Other long term (current) drug therapy; Z88.2 Allergy status to sulfonamides
CPT/HCPCS: 49505; 88302; C1781; C9088; J0690; J1100; J1200; J2003; J2250; J2371; J2405; J2704; J2795; J3010

== ENCOUNTER → 2025-01-30 07:51 | Outpatient (BNV) | payer MEDICARE, SELFPAY | PROVIDERS: PCP Internal Medicine; Visit Provider Surgery | DX: K40.21 Bilateral inguinal hernia, without obstruction or gangrene, recurrent (principal) | CPT/HCPCS: 49505 ==

== ENCOUNTER 2025-02-14 15:24 | Outpatient (AMB) | payer MEDICARE, SELFPAY ==
--- NOTE | 2025-02-14 15:42 | MHC.OFFVIS ---
Vital Signs 02/14/25 15:45 Height 5 ft 6 in Weight 194 lb BMI 31.3 BP 107/55 L Blood Pressure Location Lt brachial Position Sitting Pulse 79 Intake Visit Reasons: s/p LIH w/mesh Intake Note: Patient is seen in office for post op assessment post left inguinal hernia repair. Pt c/o: denies any concerns Allergies sulfadiazine Allergy (Verified 01/30/25 08:13) Nausea and Vomiting Medication List - Last Reconciled 02/14/25 by Casimiro Morrow MD carbidopa-levodopa 25-100 mg 2 tabs at 4am,7am,10am,1pm,4pm,7pm carbidopa-levodopa 25-100 mg ER 2 tabs PO .BEDTIME@2300 entacapone 200 mg PO QID fexofenadine 180 mg PO DAILY PRN oxycodone 5 mg PO Q6H PRN selegiline HCl 5 mg PO .DAILY@0800 HPI Comments Details: 69-year-old male patient returning 1 week following repair of a reducible left inguinal hernia with mesh. He did have some soreness following the surgery but generally feels improved today. He reports an improvement in his bowel function as well. He denies fever or chills. 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 Mother No problems noted. Brother Colon cancer Social History Household Members: Spouse Housing: House Are you a primary geriatric personal care aide to a significant other at home: No Do you presently have visiting nurse or other home services: No Alcohol intake: current Alcohol intake frequency: does not drink Patient Tobacco Use Status: Never used Tobacco e-Cigarette/Vaping Use: Never Used Current occupational status: retired Physical Exam Vital Signs: Last Vital Signs Pulse 79 02/14/25 15:45 BP 107/55 L 02/14/25 15:45 BMI result Body Mass Index 31.3 Const General: comfortable Nutritional Appearance: well nourished Orientation/consciousness: patient oriented x3 Resp Effort & Inspection: normal respiratory effort GI Other: Well-healed left inguinal incision without redness or discharge. No hernia noted with Valsalva maneuvers. Neuro General: patient oriented x3 Extrem General: No edema Assessment & Plan Assessment & Plan (1) Reducible left inguinal hernia: Code(s): K40.90 - Unilateral inguinal hernia, without obstruction or gangrene, not specified as recurrent Category: Medical Plan 69-year-old male patient with a history of Parkinson's disease returning 1 week following repair of a left inguinal hernia with mesh. He tolerated the procedure well the wounds are healing nicely. He should continue to avoid lifting greater than 10 lb and should return in approximately 1 month for follow-up examination. 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 Coding Level of Care Code Global (45534) Diagnoses Reducible left inguinal hernia K40.90
[2025-02-14 15:45] VITALS: BP 107/55; PULSE 79; BMI 31.3
== END 2025-02-14 15:53 | disposition home or self-care (01) ==
LOC: HO.HGS 15:24
PROVIDERS: PCP Internal Medicine; Visit Provider Surgery
DX: K40.90 Unilateral inguinal hernia, without obstruction or gangrene, not specified as recurrent (principal)
CPT/HCPCS: 99024

== ENCOUNTER → 2025-02-14 15:24 | Outpatient (BNVA) | payer MEDICARE, SELFPAY | PROVIDERS: PCP Internal Medicine; Visit Provider Surgery | DX: K40.90 Unilateral inguinal hernia, without obstruction or gangrene, not specified as recurrent (principal) | CPT/HCPCS: 99212 ==

== ENCOUNTER 2025-03-14 13:15 | Outpatient (AMB) | payer MEDICARE, SELFPAY ==
--- NOTE | 2025-03-14 13:19 | MHC.OFFVIS ---
Vital Signs 03/14/25 13:28 Height 5 ft 6 in Weight 198 lb 4 oz BMI 32.0 BP 116/58 L Blood Pressure Location Lt brachial Position Sitting Pulse 80 Intake Visit Reasons: one month s/p LIH w/mesh Intake Note: Patient is seen in office for one month follow up visit, post left inguinal hernia repair. 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 He feels well and denies any pain in the incision. He is eating well without nausea, vomiting, or difficulty with the bowels. He feels ready to return to normal activity. 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 Mother No problems noted. Brother Colon cancer Social History Household Members: Spouse Housing: House Are you a primary child care associate to a significant other at home: No Do you presently have visiting nurse or other home services: No Alcohol intake: current Alcohol intake frequency: does not drink Patient Tobacco Use Status: Never used Tobacco e-Cigarette/Vaping Use: Never Used Current occupational status: retired Physical Exam Vital Signs: Last Vital Signs Pulse 80 03/14/25 13:28 BP 116/58 L 03/14/25 13:28 BMI result Body Mass Index 32.0 Const General: comfortable and no acute distress Nutritional Appearance: well nourished Resp Effort & Inspection: normal respiratory effort GI Other: Left inguinal incision is clean, dry, and intact without redness or discharge. No hernia is noted with Valsalva maneuvers. Extrem Other: No edema Assessment & Plan Assessment & Plan (1) Reducible left inguinal hernia: Code(s): K40.90 - Unilateral inguinal hernia, without obstruction or gangrene, not specified as recurrent Category: Medical Plan 69-year-old male patient returning 1 month following repair of a left inguinal hernia with mesh on 01/30/2025. He tolerated the procedure well and his wounds are healing nicely. He may resume normal activity without restrictions and should follow up as needed. Coding Level of Care Code Global (56909) Diagnoses Reducible left inguinal hernia K40.90
[2025-03-14 13:28] VITALS: BP 116/58; PULSE 80; BMI 32.0
== END 2025-03-14 13:32 | disposition home or self-care (01) ==
LOC: HO.HGS 13:15
PROVIDERS: PCP Internal Medicine; Visit Provider Surgery
DX: K40.90 Unilateral inguinal hernia, without obstruction or gangrene, not specified as recurrent (principal)
CPT/HCPCS: 99024

== ENCOUNTER → 2025-03-14 13:15 | Outpatient (BNVA) | payer MEDICARE, SELFPAY | PROVIDERS: PCP Internal Medicine; Visit Provider Surgery | DX: Z48.815 Encounter for surgical aftercare following surgery on the digestive system (principal); Z98.890 Other specified postprocedural states | CPT/HCPCS: 99212 ==

== ENCOUNTER 2025-05-16 13:53 | Outpatient (AMB) | payer MEDICARE, SELFPAY ==
[2025-05-16 14:03] VITALS: BP 126/74; PULSE 83; O2SAT 99; BMI 31.5
--- NOTE | 2025-05-16 14:03 | MHC.OFFVIS ---
Vital Signs 05/16/25 14:03 Height 5 ft 6 in Weight 195 lb BMI 31.5 BP 126/74 Blood Pressure Location Rt brachial Position Sitting Pulse 83 Pulse Source Pulse Oximeter Pulse Oximetry (%) 99 Oxygen Delivery Method Room Air Intake Visit Reasons: 4mon follow-up Intake Note: Patient presents 4 month follow up. Patient has been more fatigued off and on throughout the day and has also been experiencing more anxiety and headaches. 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 His On time has decreased He still has more than 4 hr sof OFF periods during the day. After his 7 am dose it takes him 4 hrs to start moving. He has dyskinesias towards the later part of the day. He shuffles in the morning .He has 2 OFF periods usually end of the dose . He is anxious during these episodes. He is slower in the mornings. He denies hallucinations he complains of some word-finding difficulties. Says he also notices that if he takes the morning dose with food it is not effective so he tripped takes it with a small snack. He also has dyskinesias more towards the later half of the day. He denies falls. He is active and exercises regularly. His mood is stable. Mom denies lightheadedness. Denies any swallowing or speech difficulty. He has mild constipation He trialed Rytary in the past and did not work . 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 Mother No problems noted. Brother Colon cancer Social History Household Members: Spouse Housing: House Are you a primary career technical education teacher to a significant other at home: No Do you presently have visiting nurse or other home services: No Alcohol intake: current Alcohol intake frequency: does not drink Patient Tobacco Use Status: Never used Tobacco e-Cigarette/Vaping Use: Never Used Current occupational status: retired Physical Exam Vital Signs: Last Vital Signs Pulse 83 05/16/25 14:03 BP 126/74 05/16/25 14:03 Pulse Ox 99 05/16/25 14:03 Oxygen Delivery Method Room Air 05/16/25 14:03 BMI result Body Mass Index 31.5 Const General: cooperative, healthy appearing, comfortable and no acute distress Nutritional Appearance: average body habitus Orientation/consciousness: patient oriented x3 Neuro Other: moderate decreased facial expression and blink. severe hypophonia. no dyskinesia No tongue tremors. No wrist tremors. Fine finger movements mildly decreased on the right upper extremity. Tone normal. Gait- bradykinesia - very slow General: patient oriented x3 Cranial nerves: Yes CN's II-XII intact bilaterally Cognition (Neuro): normal cognition Assessment & Plan Assessment & Plan (1) Parkinson's disease with dyskinesia: Comment: G .B2 Code(s): G20.B1 - Parkinson's disease with dyskinesia, without mention of fluctuations Category: Medical Qualifiers: Fluctuating manifestations: with fluctuating manifestations Qualified Code(s): G20.B2 - Parkinson's disease with dyskinesia, with fluctuations (2) Depression: Code(s): F32.A - Depression, unspecified Category: Medical Qualifiers: Depression Type: unspecified Qualified Code(s): F32.A - Depression, unspecified (3) Constipation: Code(s): K59.00 - Constipation, unspecified Category: Medical Plan increase sinemet 25/100 3 taba 7am 2tabs at10am,1pm,4pm,7pm increase sinemet Cr 25/100 2 tabs 10 PM trial ongentys 50mg qd I will trial him on VYALEV ( Dopamine SQ pump was given ) He will be a good candidate due to fluctuations and more than 4 hrs of OFF periods per day. Miralax qd selegelline 5mg qd Lorazepam 0.5mg 1-2 tab qd Medications: New opicapone (Ongentys) must be taken on empty stomach, at least 1 hr before or after a meal/food 50 mg PO BEDTIME 30 caps 6RF Changed From carbidopa-levodopa 25-100 mg 2 tabs at ,7am,10am,1pm,4pm,7pm , 10pm 360 tabs 6RF To carbidopa-levodopa 25-100 mg 3 tabs 7am 2 tabs 10am,1pm,4pm,7pm , 10pm 450 tabs 6RF From carbidopa-levodopa 25-100 mg 2 tabs at 4am,7am,10am,1pm,4pm,7pm 360 tabs 6RF To carbidopa-levodopa 25-100 mg 2 tabs at ,7am,10am,1pm,4pm,7pm , 10pm 360 tabs 6RF Coding Level of Care Code Est Pt Level 4 (45158) Complex EM visit Add On G2211 Diagnoses Parkinson's disease with dyskinesia and fluctuating manifestations G20.B2 Fluctuating manifestations: with fluctuating manifestations Depression, unspecified depression type F32.A Depression Type: unspecified Constipation K59.00
--- OUTSIDE RECORDS SUMMARY | 2025-05-16 14:37 | XMS_ITS | Patient Health Record ---
Author Organization [facility] Address [address] [place] [address] Care Team Providers Care Supervisor Assembly Room Name Role Phone Russell Dhillon MD Primary Care Provider Ariel Lafleur Unavailable [phone] Allergies Allergen (clinical drug ingredient) Drug/Non Drug Allergy documented on EMR Reaction Allergy Type Onset Date Status sulfa vomiting Drug Allergy Active Reason For Referral No Information Medications Medication SIG (Take, Route, Frequency, Duration) Notes Start Date End Date Status Selegiline HCl 5 MG 1 tablet with breakf ast and lunch Orally Twice a day Active Carbidopa-Levodopa ER 50-200 MG 1 tablet Orally Once a day A ctive Carbidopa-Levodopa 25-100 MG 2 tabs Orally 5 times a day Active Entacapone 200 MG 1 tablet Orally Four x a day Active Social History Tobacco Use: Social History Observation Description Date Details (start date - stop date) Never Smoker NA - NA Tobacco Use/Smoking Question Answer Notes Are you a: nonsmoker Additional Findings: Tobacco Non-User Current no n-smoker Alcohol Screen Question Answer Notes Did you have a drink containing alcohol in the p ast year? No Points 0 Interpretation Negative Tobacco use other than smoking: Question Answer Notes Are you an other tobacco user? No Problems Problem Type SNOMED Code ICD Code Onset Dates Problem Status W/U Status Risk Notes Problem Achilles tendinitis, left leg (M76.62) Active confirmed Plan Of Treatment No Information Insurance Providers Payer Name Payer Address Payer Phone Subscriber Number Group Number Insured Name Patient Relationship to Insured Coverage Start Date Coverage End Date [facility] [address] [facility] [place] [id number] [phone] [id number] Brian Morse Self - patient is the insured Medical (General) History Medical History History ICD Code Anxiety Back,Hip,and Knee pain Chicken pox Depression Measles Parkinsons disease Sciatica Warts Surgical History Surgery Date(Month/Year) appendectomy
== END 2025-05-16 14:40 | disposition home or self-care (01) ==
LOC: HO.HSMS 13:53
PROVIDERS: PCP Internal Medicine; Visit Provider Psychiatry & Neurology Neurology
DX: G20.B2 Parkinson's disease with dyskinesia, with fluctuations (principal); F32.A Depression, unspecified; K59.00 Constipation, unspecified
CPT/HCPCS: 99214; G2211

== ENCOUNTER → 2025-05-16 13:53 | Outpatient (BNVA) | payer MEDICARE, SELFPAY | PROVIDERS: PCP Internal Medicine; Visit Provider Psychiatry & Neurology Neurology | DX: G20.B2 Parkinson's disease with dyskinesia, with fluctuations (principal); F32.A Depression, unspecified; K59.00 Constipation, unspecified | CPT/HCPCS: 99212 ==

== ENCOUNTER 2025-09-19 13:42 | Outpatient (AMB) | payer MEDICARE, SELFPAY ==
--- NOTE | 2025-09-19 13:42 | MHC.OFFVIS ---
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 His On time has decreased He still has more than 4 hr sof OFF periods during the day. After his 7 am dose it takes him 4 hrs to start moving. He has dyskinesias towards the later part of the day. He shuffles in the morning .He has 2 OFF periods usually end of the dose . He is anxious during these episodes. He is slower in the mornings. He denies hallucinations he complains of some word-finding difficulties. Says he also notices that if he takes the morning dose with food it is not effective so he tripped takes it with a small snack. He also has dyskinesias more towards the later half of the day. He denies falls. He is active and exercises regularly. His mood is stable. Mom denies lightheadedness. Denies any swallowing or speech difficulty. He has mild constipation He trialed Rytary in the past and did not work . 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 Mother No problems noted. Brother Colon cancer Social History Household Members: Spouse Housing: House Are you a primary animal care taker to a significant other at home: No Do you presently have visiting nurse or other home services: No Alcohol intake: current Alcohol intake frequency: does not drink Patient Tobacco Use Status: Never used Tobacco e-Cigarette/Vaping Use: Never Used Current occupational status: retired Physical Exam Vital Signs: Last Vital Signs Pulse 83 09/19/25 13:43 BP 108/64 09/19/25 13:43 Pulse Ox 96 09/19/25 13:43 Oxygen Delivery Method Room Air 09/19/25 13:43 BMI result Body Mass Index 32.8 Const General: cooperative, healthy appearing, comfortable and no acute distress Nutritional Appearance: average body habitus Orientation/consciousness: patient oriented x3 Neuro Other: moderate decreased facial expression and blink. severe hypophonia. no dyskinesia No tongue tremors. No wrist tremors. Fine finger movements mildly decreased on the right upper extremity. Tone normal. Gait- bradykinesia - very slow General: patient oriented x3 Cranial nerves: Yes CN's II-XII intact bilaterally Cognition (Neuro): normal cognition Assessment & Plan Assessment & Plan (1) Parkinson's disease with dyskinesia: Comment: Code(s): G20.B1 - Parkinson's disease with dyskinesia, without mention of fluctuations Category: Medical Qualifiers: Fluctuating manifestations: with fluctuating manifestations Qualified Code(s): G20.B2 - Parkinson's disease with dyskinesia, with fluctuations (2) Depression: Code(s): F32.A - Depression, unspecified Category: Medical Qualifiers: Depression Type: unspecified Qualified Code(s): F32.A - Depression, unspecified (3) Constipation: Code(s): K59.00 - Constipation, unspecified Category: Medical Plan sinemet 25/100 2 taba 7am at10am,1pm,4pm,7pm 10 pm Entacapone 200mg 5 times a day sinemet Cr 25/100 2 tabs 11 PM Insurance did not approve ongentys He is wiating for ANGELINA ( Dopamine SQ pump was given ) He will be a good candidate due to fluctuations and more than 4 hrs of OFF periods per day. Miralax qd selegelline 5mg qd Lorazepam 0.5mg 1-2 tab qd Medications: Changed From carbidopa-levodopa 25-100 mg 3 tabs 7am 2 tabs 10am,1pm,4pm,7pm , 10pm 450 tabs 6RF To carbidopa-levodopa 25-100 mg 2 tabs 7am 10am,1pm,4pm,7pm 10pm 450 tabs 6RF From entacapone administer at the same time as l-dopa/carbidopa dose 200 mg PO QID 120 tabs 6RF To entacapone administer at the same time as l-dopa/carbidopa dose 200 mg PO .5 times a day 120 tabs 6RF Coding Level of Care Code Complex visit Add On G2211 Diagnoses Parkinson's disease with dyskinesia and fluctuating manifestations G20.B2 Fluctuating manifestations: with fluctuating manifestations Depression, unspecified depression type F32.A Depression Type: unspecified Constipation K59.00
[2025-09-19 13:43] VITALS: BP 108/64; PULSE 83; O2SAT 96; BMI 32.8
--- OUTSIDE RECORDS SUMMARY | 2025-09-19 19:09 | XMS_ITS | Patient Health Record ---
Author Organization [facility] Address [address] [place] [address] Care Team Providers Care Maintenance Mechanic Helper Name Role Phone Russell Dhillon MD Primary Care Provider Ariel Lafleur Unavailable [phone] Allergies Allergen (clinical drug ingredient) Drug/Non Drug [...] Status W/U Status Risk Notes Problem Achilles bursitis (360412921) Achilles tendinitis, left leg (M76.62) Active confirmed Plan Of Treatment No Information Insurance Providers Payer Name Payer Address Payer Phone Subscriber Number Group Number Insured Name Patient Relationship to Insured Coverage Start Date Coverage End Date [facility] [address] [place] [address] [phone] [id number] Brian Morse Self - patient is the insured Medical (General) History Medical History History ICD Code Anxiety Back,Hip,and Knee pain Chicken pox Depression Measles Parkinsons disease Sciatica Warts Surgical History Surgery Date(Month/Year) appendectomy
--- OUTSIDE RECORDS SUMMARY | 2025-09-19 19:09 | XMS_ITS | Patient Health Record ---
Author Organization [facility] Address [address] [place] [address] Care Team Providers Care Missile Tracking Technician Name Role Phone Jacquie FOSTER, Russell Primary Care Provider Sidney Diez Jr Unavailable [phone] Allergies Allergen (clinical drug ingredient) Drug/Non Drug Allergy documented on EMR Reaction Allergy Type Onset Date Status Sulfa Unknown Drug Allergy Active Reason For Referral No Information Medications Medication SIG (Take, Route, Frequency, Duration) Notes Start Date End Date Status Carbidopa-Levodopa 25-100 MG Tablet 11/2-2 tablet Orally 6 x a day as directed Active Colyte with Flavor Packs 240 GM Solution Reconstituted As directed Orally Over the specified time.; Duration: 1 day(s) 01/03/2019 Active Selegiline HCl 5 MG Tablet 1 tablet with breakfast and lunch Orally Twice a day Active Entacapone 200 MG Tablet 1 tablet Orally QID Active Carbidopa-Levodopa ER 50-200 MG Tablet Extended Release 1 tablet Orally Once a day Active Immunizations Vaccine Route Administration Date Status Comme nts Influenza Unknown 09/13/2018 Administered Social History Social History Additional Details Category Social Info Options Details Miscellaneous: Marital status: Occupation: unemployed Problems Problem Type SNOMED Code ICD Code Onset Dates Problem Status W/U Status Risk Notes Problem Colon cancer screening (506434895) Colon cancer screening (Z12.11) Active confirmed Problem Pre-procedure evaluation check (648545073) Encounter for other preprocedural examination (Z01.818) Active confirmed Plan Of Treatment Future Test Test Name Order Date COLONOSCOPY 04/23/2013 COLONOSCOPY 01/03/2019 Insurance Providers Payer Name Payer Address Payer Phone Subscriber Number Group Number Insured Name Patient Relationship to Insured Coverage Start Date Coverage End Date [facility] [address] [place] [phone] [id number] ALEJANDRO FARAH Self - patient is the insured Medical (General) History Medical History History ICD Code colonoscopy 2012 colon polyps Denies VA,DM,CVA,Lung disease,renal dise ase Parkinson's disease Surgical History Surgery Date(Month/Year) appendectomy
== END 2025-09-19 14:14 | disposition home or self-care (01) ==
LOC: HO.HSMS 13:43
PROVIDERS: PCP Internal Medicine; Visit Provider Psychiatry & Neurology Neurology
DX: G20.B2 Parkinson's disease with dyskinesia, with fluctuations (principal); F32.A Depression, unspecified; K59.00 Constipation, unspecified
CPT/HCPCS: 99214; G2211

== ENCOUNTER → 2025-09-19 13:42 | Outpatient (BNVA) | payer MEDICARE, SELFPAY | PROVIDERS: PCP Internal Medicine; Visit Provider Psychiatry & Neurology Neurology | DX: G20.B2 Parkinson's disease with dyskinesia, with fluctuations (principal); F32.A Depression, unspecified; K59.00 Constipation, unspecified | CPT/HCPCS: 99212 ==